=== PATIENT | female | born 1965 | race Caucasian/White ===

== ENCOUNTER 2023-10-20 04:18 | Day surgery (SDC) | payer OTHER ==
[2023-10-15 17:18] VITALS: BMI 25.9
[2023-10-20] MEDS ORDERED: MIDAZOLAM HCL 2 MG/2 ML SINGLE DOSE VIAL ONE (08:11)
[2023-10-20] MEDS ORDERED: ONDANSETRON 4 MG/2 ML VIAL IVPUSH PRN (09:09)
[2023-10-20] MEDS ORDERED: PROMETHAZINE HCL 25 MG/1 ML VIAL IVPB PRN (09:09)
[2023-10-20] MEDS ORDERED: LACTATED RINGERS SOLUTION 1,000 ML IV SCH (09:15)
[2023-10-20] MEDS: ceFAZolin SODIUM 1 GM VIAL IVPB ONE (09:43)
[2023-10-20] MEDS: LIDOCAINE HCL 1%, 10 MG/ML (20ML VIAL) NR ONE ×2 (09:49)
[2023-10-20 12:11] VITALS: RESP 16
[2023-10-20] MEDS ORDERED: oxyCODONE HCL 5 MG TABLET ONE (12:15)
[2023-10-20] MEDS: oxyCODONE HCL 5 MG TABLET PO PRN (12:17)
[2023-10-20 13:13] VITALS: TEMP 97.6
[2023-10-20 14:03] VITALS: BP 102/60; PULSE 60
== END 2023-10-20 14:03 | disposition home or self-care (01) ==
LOC: JASU-SURG 04:18
PROVIDERS: ATTEND Surgery
PROC: 0HBU0ZX Excision of Left Breast, Open Approach, Diagnostic (ICD-10-PCS; principal; 2023-10-20 09:00)
DX: N60.22 Fibroadenosis of left breast (principal)
CPT/HCPCS: 19281; 88307-TC; 88341-TC; 88342-TC; 94760